=== PATIENT | female | born 1985 | race Caucasian/White ===

== ENCOUNTER 2017-07-31 17:51 | Emergency (ER) | payer MEDICAID, OTHER ==
[~2017-07-31] VITALS: Ht 170.2 cm; Wt 60.0 kg
[~2017-07-31 17:51] MED LIST: ALUM5LIQ PO; BENA25TA8 PO; CLON.1 PO; CYCL1PAK PO; HYDR50 PO; IBUP400 PO; IBUP800 PO; LAMO150 PO; LEVE500 PO; LOPE2TAB3 PO; LORA-392 PO; LORA0.5T PO; MAGN30S PO; MAPA325T6 PO; NICO2LOZ SL; PEPT262S PO; PROZ40CA PO; THIA100T PO; [UNRECOGNIZED DRUG - CODE] MT; [UNRECOGNIZED DRUG - CODE] PR
[2017-07-31 18:30] VITALS: BP 126/61; PULSE 89; RESP 16; TEMP 98.7; O2SAT 100
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
[2017-07-31] MEDS ORDERED: diphenhydrAMINE HCL 50 MG CAP PO ONE (20:15)
[2017-07-31] MEDS ORDERED: diphenhydrAMINE HCL 50 MG/ML VIAL IM ONE (20:30)
[2017-07-31] MEDS ORDERED: ZIPRASIDONE MESYLATE 20 MG VIAL IM ONE (20:30)
[2017-07-31 22:35] VITALS: BP 94/51; PULSE 73; RESP 18; TEMP 98.8; O2SAT 100
[2017-08-01 06:25] VITALS: BP 105/57; PULSE 63; RESP 18; TEMP 99.2; O2SAT 100
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
[2017-08-01] MEDS ORDERED: NICOTINE 21 MG/24 HR PATCH T-DERMAL ONE (14:30)
[2017-08-01] MEDS ORDERED: levETIRAcetam 500 MG TAB PO ONE (15:45)
[2017-08-01 18:35] VITALS: BP 130/70; PULSE 90; RESP 18; O2SAT 100
[2017-08-01] MEDS ORDERED: ZIPRASIDONE MESYLATE 20 MG VIAL IM ONE (19:00)
[2017-08-01] MEDS ORDERED: diphenhydrAMINE HCL 50 MG/ML VIAL IM ONE (19:00)
[2017-08-01 22:21] VITALS: RESP 16
[2017-08-02 06:11] VITALS: BP 98/54; PULSE 77; RESP 17; TEMP 98.3; O2SAT 99
[2017-08-02] MEDS ORDERED: NICOTINE 21 MG/24 HR PATCH T-DERMAL ONE (11:00)
[2017-08-02] MEDS ORDERED: levETIRAcetam 500 MG TAB PO ONE (14:00)
[2017-08-02] MEDS ORDERED: PREGABALIN 100 MG CAP PO ONE (14:00)
[2017-08-02] MEDS ORDERED: REMOVE OLD NICOTINE PATCH T-DERMAL ONE (14:30)
[2017-08-02 18:07] VITALS: BP 103/60; PULSE 76; RESP 18; O2SAT 96
[2017-08-02] MEDS ORDERED: ALPRAZolam 0.5 MG TAB PO ONE (22:00)
--- NOTE | 2017-08-03 10:34 | PD ---
Physical Exam Time Seen by Provider: 10:[address] Beck has evaluated the patient, lifted the Ramirez act and cleared the patient for discharge. The patient will be transferred to [facility] for continued care and evaluation. Data Data Last Documented VS Vital Signs Date Time Temp Pulse Resp B/P (MAP) Pulse Ox O2 Delivery O2 Flow Rate FiO2 08/02/17 18:07 76 18 103/60 (74) 96 Room Air 08/02/17 06:11 98.3 Orders Orders Psych Screen (07/31/17 18:54) Diet Regular Basic (07/31/17 Dinner) Diphenhydramine (Benadryl) (07/31/17 20:15) Ziprasidone Inj (Geodon Inj) (07/31/17 20:30) Diphenhydramine Inj (Benadryl Inj) (07/31/17 20:30) Diet Regular Basic (08/01/17 Breakfast) Diet Regular Basic (08/01/17 Lunch) Nicotine 21 Mg Patch.24 Hr (Habitrol 21 (08/01/17 14:30) Remove Old Patch (08/02/17 14:30) Levetiracetam (Keppra) (08/01/17 15:45) Diet Regular Basic (08/01/17 Dinner) Ziprasidone Inj (Geodon Inj) (08/01/17 19:00) Diphenhydramine Inj (Benadryl Inj) (08/01/17 19:00) Diet Regular Basic (08/02/17 Breakfast) Nicotine 21 Mg Patch.24 Hr (Habitrol 21 (08/02/17 11:00) Diet Regular Basic (08/02/17 Lunch) Levetiracetam (Keppra) (08/02/17 14:00) Pregabalin (Lyrica) (08/02/17 14:00) Diet Regular Basic (08/02/17 Dinner) Alprazolam (Xanax) (08/02/17 22:00) Diet Regular Basic (08/03/17 Breakfast) [facility] Supervised Visit with JAMMIE: No Narrative Course Dr. Beck has evaluated the patient, lifted the Ramirez act and cleared the patient for discharge. The patient will be transferred to [facility] for continued care and evaluation. Patient contracts safety. Denies suicidal or homicidal ideations. Patient will be provided community resource packet to [facility] for follow-up. Has friends and family for support. Patient was medically cleared by alternate provider prior to psych screening. Patient has been evaluated by psychiatry and and is now cleared for discharge. Diagnosis Primary Impression: History of drug overdose Additional Impressions: Drug induced hallucinations Polysubstance abuse Referrals: [facility] (Out patient) [facility] Primary Care Physician Psychiatrist Bree[facility] Patient Instructions: General Instructions, Polysubstance Abuse (ED) Additional Instruction: Contract safety to your self and others Follow-up with psychiatry Follow-up with primary care provider Follow-up with [facility] Return to the emergency department immediately with worsening of symptoms Med/Other Pt SpecificInfo: No Change to Meds, No Meds Exist/No RX given Disposition: 65 DISC TO PSYCH CARE FACILITY Condition: Stable Paula Beth E [employer] Aug 03, 2017 10:34
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
== END 2017-08-03 11:20 | disposition short-term general hospital (02) ==
LOC: NEPJ 17:51
DX: F19.151 Other psychoactive substance abuse with psychoactive substance-induced psychotic disorder with hallucinations (principal); F90.9 Attention-deficit hyperactivity disorder, unspecified type; F17.210 Nicotine dependence, cigarettes, uncomplicated; F31.9 Bipolar disorder, unspecified; M79.7 Fibromyalgia
CPT/HCPCS: 96372; 99285; J1200; J3486

== ENCOUNTER 2017-08-13 17:03 | Emergency (ER) | payer OTHER ==
[2017-08-13 17:14] VITALS: BP 141/88; PULSE 112; RESP 20; TEMP 99.5; O2SAT 100
[2017-08-13] MEDS ORDERED: CARI1CAP PO (17:36)
[2017-08-13] MEDS ORDERED: GABA100C4 PO (17:36)
[2017-08-13] MEDS ORDERED: KEPP750T PO (17:36)
[2017-08-13] MEDS ORDERED: VIST25CA PO (17:36)
[2017-08-13] MEDS ORDERED: LORA-392 PO (17:36)
[2017-08-13] MEDS ORDERED: TRAZ50TA12 PO (17:36)
[2017-08-13 17:37] VITALS: PULSE 95
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
[2017-08-13 18:41] LABS: AUTOMATED NEUTROPHIL # 4.5 TH/MM3 (1.8-7.7); BASOPHIL % 0.4 % (0.0-2.0); EOSINOPHIL # 0.1 TH/MM3 (0-0.4); EOSINOPHIL % 0.9 % (0.0-4.0); HEMATOCRIT 35.2 % (35.0-46.0); HEMOGLOBIN 12.3 GM/DL (11.6-15.3); LYMPH % 30.4 % (9.0-44.0); LYMPHOCYTE # 2.2 TH/MM3 (1.0-4.8); MEAN CORPUSCULAR HEMOGLOBIN 30.1 PG (27.0-34.0); MEAN CORPUSCULAR HGB CONC 35.1 % (32.0-36.0); MEAN PLATELET VOLUME 8.7 FL (7.0-11.0); MONO % 7.6 % (0.0-8.0); MONOCYTE # 0.6 TH/MM3 (0-0.9); NEUT % 60.7 % (16.0-70.0); PLATELET COUNT 194 TH/MM3 (150-450); RED BLOOD COUNT 4.09 MIL/MM3 (4.00-5.30); RED CELL DISTRIBUTION WIDTH 13.2 % (11.6-17.2); WHITE BLOOD COUNT 7.4 TH/MM3 (4.0-11.0)
[2017-08-13] MEDS ORDERED: TRAZ100T10 PO (18:42)
[2017-08-13] MEDS ORDERED: ZIPR1CAP12 PO (18:42)
[2017-08-13] MEDS ORDERED: NICO14DI T-DERMAL (18:42)
[2017-08-13] MEDS ORDERED: BENZ0.5T PO (18:42)
[2017-08-13] MEDS ORDERED: LYRI200C PO (18:42)
[2017-08-13 18:53] LABS: ALBUMIN 3.7 GM/DL (3.4-5.0); ALT (GPT) 52 U/L (10-53); AST (GOT) 24 U/L (15-37); BICARBONATE 27.5 MEQ/L (21.0-32.0); BLOOD UREA NITROGEN 12 MG/DL (7-18); CALCIUM 8.3 MG/DL (8.5-10.1); CHLORIDE 106 MEQ/L (98-107); CREATININE 0.79 MG/DL (0.50-1.00); GLOMERULAR FILTRATION RATE 85 ML/MIN (>89); GLUCOSE,RANDOM 85 MG/DL (74-106); SODIUM (NA) 141 MEQ/L (136-145)
[2017-08-13 19:03] LABS: ALKALINE PHOSPHATASE 57 U/L (45-117); TOTAL BILIRUBIN ADULT 0.3 MG/DL (0.2-1.0); TOTAL PROTEIN 7.1 GM/DL (6.4-8.2)
[2017-08-13 20:30] LABS: AMORPHOUS SEDIMENT, URINE RARE; BACTERIA, URINE OCC /hpf; BILIRUBIN, URINE NEG (NEG); BLOOD, URINE TRACE (NEG); GLUCOSE,URINE NEG (NEG); KETONE, URINE NEG (NEG); MUCUS URINE FEW /lpf (OCC); NITRITE,URINE NEG (NEG); PH, URINE 6.5 (5.0-8.5); SQUAMOUS EPITHELIAL CELL URINE 50 /hpf (0-5); URINE COLOR YELLOW (YELLW/STRAW); URINE LEUKOCYTE ESTERASE LARGE (NEG)
[2017-08-13 22:02] VITALS: BP 125/69; PULSE 76; RESP 18; O2SAT 100
[2017-08-13] MEDS ORDERED: SULFAMETHOXAZOLE-TRIMETHOPRIM DS 800-160 MG TAB PO ONE (22:15)
[2017-08-13] MEDS ORDERED: BACT800T5 PO (22:16)
--- NOTE | 2017-08-13 22:19 | PD ---
Data Data Last Documented VS Vital Signs Date Time Temp Pulse Resp B/P (MAP) Pulse Ox O2 Delivery O2 Flow Rate FiO2 08/13/17 22:02 76 18 125/69 (87) 100 Room Air 08/13/17 17:14 99.5 Orders Orders Complete Blood Count With Diff (08/13/17 17:59) Comprehensive Metabolic Panel (08/13/17 17:59) Thyroid Stimulating Hormone (08/13/17 17:59) Urinalysis - C+S If Indicated (08/13/17 17:59) Ed Urine Pregnancytest Poc (08/13/17 17:59) Psych Screen (08/13/17 17:59) Drug Screen, Random Urine (08/13/17 17:59) Alcohol (Ethanol) (08/13/17 17:59) Urine Culture (08/13/17 19:13) Sulfamet-Trimeth Ds 800-160 Mg (Bactrim (08/13/17 22:15) Labs Laboratory Tests Test 08/13/17 18:15 08/13/17 19:13 White Blood Count 7.4 TH/MM3 Red Blood Count 4.09 MIL/MM3 Hemoglobin 12.3 GM/DL Hematocrit 35.2 % Mean Corpuscular Volume 86.0 FL Mean Corpuscular Hemoglobin 30.1 PG Mean Corpuscular Hemoglobin Concent 35.1 % Red Cell Distribution Width 13.2 % Platelet Count 194 TH/MM3 Mean Platelet Volume 8.7 FL Neutrophils (%) (Auto) 60.7 % Lymphocytes (%) (Auto) 30.4 % Monocytes (%) (Auto) 7.6 % Eosinophils (%) (Auto) 0.9 % Basophils (%) (Auto) 0.4 % Neutrophils # (Auto) 4.5 TH/MM3 Lymphocytes # (Auto) 2.2 TH/MM3 Monocytes # (Auto) 0.6 TH/MM3 Eosinophils # (Auto) 0.1 TH/MM3 Basophils # (Auto) 0.0 TH/MM3 CBC Comment DIFF FINAL Differential Comment Blood Urea Nitrogen 12 MG/DL Creatinine 0.79 MG/DL Random Glucose 85 MG/DL Total Protein 7.1 GM/DL Albumin 3.7 GM/DL Calcium Level 8.3 MG/DL Alkaline Phosphatase 57 U/L Aspartate Amino Transf (AST/SGOT) 24 U/L Alanine Aminotransferase (ALT/SGPT) 52 U/L Total Bilirubin 0.3 MG/DL Sodium Level 141 MEQ/L Potassium Level 3.9 MEQ/L Chloride Level 106 MEQ/L Carbon Dioxide Level 27.5 MEQ/L Anion Gap 8 MEQ/L Estimat Glomerular Filtration Rate 85 ML/MIN Thyroid Stimulating Hormone 3rd Gen 4.140 uIU/ML Ethyl Alcohol Level LESS THAN 3 MG/DL Urine Color YELLOW Urine Turbidity HAZY Urine pH 6.5 Urine Specific [place] 1.024 Urine Protein 30 mg/dL Urine Glucose (UA) NEG mg/dL Urine Ketones NEG mg/dL Urine Occult Blood TRACE Urine Nitrite NEG Urine Bilirubin NEG Urine Urobilinogen LESS THAN 2.0 MG/DL Urine Leukocyte Esterase LARGE Urine RBC 13 /hpf Urine WBC 33 /hpf Urine Squamous Epithelial Cells 50 /hpf Urine Amorphous Sediment RARE Urine Bacteria OCC /hpf Urine Mucus FEW /lpf Microscopic Urinalysis Comment CULTURE INDICATED Urine Opiates Screen NEG Urine Barbiturates Screen NEG Urine Amphetamines Screen POS Urine Benzodiazepines Screen POS Urine Cocaine Screen NEG Urine Cannabinoids Screen POS MDM Supervised Visit with JAMMIE: No Narrative Course Patient is checked out to me at 7 PM. Patient has an IV drug user and is getting medical clearance for psychiatric evaluation. She did inject her left hand and there is a bit of redness and discomfort around the injection site. There is no fluctuance or drainage. Nothing remotely amenable to incision and drainage. At this point her pulse is 76 and her blood pressure is normal. She does not look septic nor toxic. She has no chest symptoms and no obvious murmur. I do not have any clinical suspicion of endocarditis. Lab studies are normal other than minor elevation of TSH not clinically requiring treatment Tox screen positive for multiple things Urinalysis shows 33 white cells and will be cultured I gave her dose of Bactrim DS and will prescribe her 10 days worth. This should help with both minor left hand cellulitis and potential UTI She is awaiting psych eval but I do not feel requires emergent hospitalization for minor infections at this point. Diagnosis Primary Impression: Medical clearance for psychiatric admission Additional Impressions: Polysubstance abuse Cellulitis of left hand excluding fingers and thumb Pyuria Scripts Sulfamethoxazole-Trimethoprim (Bactrim DS) 800-160 Mg Tab 1 TAB PO BID for Infection, #20 TAB 0 Refills Prov: Alfie Bains MD 08/13/17 Condition: Stable Alfie Bains MD August 13, 2017 22:19
[2017-08-14 05:44] VITALS: BP 107/62; PULSE 87; RESP 18; O2SAT 97
--- NOTE | 2017-08-14 08:34 | PD ---
Data Data Last Documented VS Vital Signs Date Time Temp Pulse Resp B/P (MAP) Pulse Ox O2 Delivery O2 Flow Rate FiO2 08/14/17 05:44 87 18 107/62 (77) 97 Room Air 08/13/17 17:14 99.5 Orders Orders Complete Blood Count With Diff (08/13/17 17:59) Comprehensive Metabolic Panel (08/13/17 17:59) Thyroid Stimulating Hormone (08/13/17 17:59) Urinalysis - C+S If Indicated (08/13/17 17:59) Ed Urine Pregnancytest Poc (08/13/17 17:59) Psych Screen (08/13/17 17:59) Drug Screen, Random Urine (08/13/17 17:59) Alcohol (Ethanol) (08/13/17 17:59) Urine Culture (08/13/17 19:13) Sulfamet-Trimeth Ds 800-160 Mg (Bactrim (08/13/17 22:15) Hydroxyzine Pamoate (Vistaril) (08/14/17 01:30) Diet Regular Basic (08/14/17 Breakfast) Labs Laboratory Tests Test 08/13/17 18:15 08/13/17 19:13 White Blood Count 7.4 TH/MM3 Red Blood Count 4.09 MIL/MM3 Hemoglobin 12.3 GM/DL Hematocrit 35.2 % Mean Corpuscular Volume 86.0 FL Mean Corpuscular Hemoglobin 30.1 PG Mean Corpuscular Hemoglobin Concent 35.1 % Red Cell Distribution Width 13.2 % Platelet Count 194 TH/MM3 Mean Platelet Volume 8.7 FL Neutrophils (%) (Auto) 60.7 % Lymphocytes (%) (Auto) 30.4 % Monocytes (%) (Auto) 7.6 % Eosinophils (%) (Auto) 0.9 % Basophils (%) (Auto) 0.4 % Neutrophils # (Auto) 4.5 TH/MM3 Lymphocytes # (Auto) 2.2 TH/MM3 Monocytes # (Auto) 0.6 TH/MM3 Eosinophils # (Auto) 0.1 TH/MM3 Basophils # (Auto) 0.0 TH/MM3 CBC Comment DIFF FINAL Differential Comment Blood Urea Nitrogen 12 MG/DL Creatinine 0.79 MG/DL Random Glucose 85 MG/DL Total Protein 7.1 GM/DL Albumin 3.7 GM/DL Calcium Level 8.3 MG/DL Alkaline Phosphatase 57 U/L Aspartate Amino Transf (AST/SGOT) 24 U/L Alanine Aminotransferase (ALT/SGPT) 52 U/L Total Bilirubin 0.3 MG/DL Sodium Level 141 MEQ/L Potassium Level 3.9 MEQ/L Chloride Level 106 MEQ/L Carbon Dioxide Level 27.5 MEQ/L Anion Gap 8 MEQ/L Estimat Glomerular Filtration Rate 85 ML/MIN Thyroid Stimulating Hormone 3rd Gen 4.140 uIU/ML Ethyl Alcohol Level LESS THAN 3 MG/DL Urine Color YELLOW Urine Turbidity HAZY Urine pH 6.5 Urine Specific [place] 1.024 Urine Protein 30 mg/dL Urine Glucose (UA) NEG mg/dL Urine Ketones NEG mg/dL Urine Occult Blood TRACE Urine Nitrite NEG Urine Bilirubin NEG Urine Urobilinogen LESS THAN 2.0 MG/DL Urine Leukocyte Esterase LARGE Urine RBC 13 /hpf Urine WBC 33 /hpf Urine Squamous Epithelial Cells 50 /hpf Urine Amorphous Sediment RARE Urine Bacteria OCC /hpf Urine Mucus FEW /lpf Microscopic Urinalysis Comment CULTURE INDICATED Urine Opiates Screen NEG Urine Barbiturates Screen NEG Urine Amphetamines Screen POS Urine Benzodiazepines Screen POS Urine Cocaine Screen NEG Urine Cannabinoids Screen POS MDM Medical Record Reviewed: Yes Supervised Visit with JAMMIE: No Narrative Course Please see previous providers notes. This patient has been examined by Dr. Loya the psychiatrist who has cleared her from a psychiatry standpoint to go home. She has no medical issues that would warrant further hospitalization. Previous provider wrote her Bactrim for UTI. Stable for discharge. Diagnosis Primary Impression: Medical clearance for psychiatric admission Additional Impressions: Pyuria Polysubstance abuse Cellulitis of left hand excluding fingers and thumb Med/Other Pt SpecificInfo: Prescription(s) given Scripts Sulfamethoxazole-Trimethoprim (Bactrim DS) 800-160 Mg Tab 1 TAB PO BID for Infection, #20 TAB 0 Refills Prov: Alfie Bains MD 08/13/17 Disposition: 01 DISCHARGE HOME Condition: Stable Leroy Keita August 14, 2017 08:34
--- NOTE | 2017-08-14 11:54 | PD.PSY.CON ---
Provisional Diagnosis Admission Date [place]. Polysubstance dependence, including cocaine, cannabis and amphetamines History of Present Illness Service Psychiatry Consult Requested By ER Reason for Consult Visual hallucination Primary Care Physician Unknown HPI The patient is a 31 year-old woman, single, domiciled with her mother , unemployed, supported by [facility] with two children ( 3 year old son and 15 year daughter), she has a psychiatric history of bipolar disorder, borderline personality disorder, ADHD, multiple psychiatric hospitalizations, numerous suicidal attempts, polysubstance dependence including amphetamines, cocaine, benzodiazepines, cannabis, medical history of TBI, seizures, fibromyalgia, hepatitis C, who is brought in by her mom voluntarily for psychiatric evaluation. Patient was recently seen here under psychiatric evaluation on 01 August, and was transferred to [facility] under an [facility], and was just released yesterday afternoon. Patient denies use of drugs however she has obvious injection pratt to the left first webspace and swelling and erythema to the dorsal left hand. Patient is lethargic, but able to answer questions appropriately. She states she is having both auditory and visual hallucinations. On my psychiatric evaluation today the patient denies depressive symptoms. He says that she wants to go home. He denies suicidal enemas ideation, she denies visual and auditory hallucinations at the moment. The patient reports that she was having hallucinations yesterday because she is drugs. The patient reports that detox/rehab in [facility] did not work for her. Past Family Social History Coded Allergies: No Known Allergies (Verified Allergy, Unknown, 07/31/17) Per LORENZA Burrows, [facility]. Active Scripts Sulfamethoxazole-Trimethoprim (Bactrim DS) 800-160 Mg Tab, 1 TAB PO BID for Infection, #20 TAB 0 Refills Prov:Alfie Bains MD 08/13/17 Reported Medications Nicotine Patch (Nicotine Patch) 14 Mg/24 Hr Patch, 14 MG T-DERMAL DAILY for Smoking Cessation, #30 PATCH 0 Refills 08/13/17 Pregabalin (Lyrica) 200 Mg Cap, 200 MG PO BID, #60 CAP 0 Refills 08/13/17 Trazodone (Trazodone) 100 Mg Tablet, 100 MG PO HS for Control Depression, #30 TAB 0 Refills 08/13/17 Benztropine (Benztropine) 0.5 Mg Tab, 1 MG PO BID, #60 TAB 0 Refills 08/13/17 Ziprasidone (Ziprasidone) 80 Mg Cap, 80 MG PO BIDPC, #60 CAP 0 Refills 08/13/17 Hydroxyzine Pamoate (Vistaril) 25 Mg Cap, 25 MG PO HS, CAP 0 Refills 08/13/17 Gabapentin (Gabapentin) 100 Mg Cap, 100 MG PO BID, #60 CAP 0 Refills 08/13/17 Cariprazine (Vraylar) 1.5 Mg Cap, 1.5 MG PO DAILY, #30 CAP 0 Refills 08/13/17 Levetiracetam (Keppra) 750 Mg Tab, 750 MG PO BID for Control Seizures, #60 TAB 0 Refills 08/13/17 Lorazepam (Ativan) 0.5 Mg Tab, 0.5 MG PO DAILY Y for ANXIETY AND/OR AGITATION, TAB 0 Refills 08/13/17 Discontinued Reported Medications Trazodone (Trazodone) 50 Mg Tab, 50 MG PO HS for Control Depression, #30 TAB 0 Refills 08/13/17 Physical Exam Vital Signs Vital Signs Date Time Temp Pulse Resp B/P (MAP) Pulse Ox O2 Delivery O2 Flow Rate FiO2 08/14/17 08:45 08/14/17 05:44 87 18 97 Room Air 08/13/17 17:14 99.5 Lab Results Test 08/13/17 18:15 08/13/17 19:13 White Blood Count 7.4 TH/MM3 Red Blood Count 4.09 MIL/MM3 Hemoglobin 12.3 GM/DL Hematocrit 35.2 % Mean Corpuscular Volume 86.0 FL Mean Corpuscular Hemoglobin 30.1 PG Mean Corpuscular Hemoglobin Concent 35.1 % Red Cell Distribution Width 13.2 % Platelet Count 194 TH/MM3 Mean Platelet Volume 8.7 FL Neutrophils (%) (Auto) 60.7 % Lymphocytes (%) (Auto) 30.4 % Monocytes (%) (Auto) 7.6 % Eosinophils (%) (Auto) 0.9 % Basophils (%) (Auto) 0.4 % Neutrophils # (Auto) 4.5 TH/MM3 Lymphocytes # (Auto) 2.2 TH/MM3 Monocytes # (Auto) 0.6 TH/MM3 Eosinophils # (Auto) 0.1 TH/MM3 Basophils # (Auto) 0.0 TH/MM3 CBC Comment DIFF FINAL Differential Comment Blood Urea Nitrogen 12 MG/DL Creatinine 0.79 MG/DL Random Glucose 85 MG/DL Total Protein 7.1 GM/DL Albumin 3.7 GM/DL Calcium Level 8.3 MG/DL Alkaline Phosphatase 57 U/L Aspartate Amino Transf (AST/SGOT) 24 U/L Alanine Aminotransferase (ALT/SGPT) 52 U/L Total Bilirubin 0.3 MG/DL Sodium Level 141 MEQ/L Potassium Level 3.9 MEQ/L Chloride Level 106 MEQ/L Carbon Dioxide Level 27.5 MEQ/L Anion Gap 8 MEQ/L Estimat Glomerular Filtration Rate 85 ML/MIN Thyroid Stimulating Hormone 3rd Gen 4.140 uIU/ML Ethyl Alcohol Level LESS THAN 3 MG/DL Urine Color YELLOW Urine Turbidity HAZY Urine pH 6.5 Urine Specific [place] 1.024 Urine Protein 30 mg/dL Urine Glucose (UA) NEG mg/dL Urine Ketones NEG mg/dL Urine Occult Blood TRACE Urine Nitrite NEG Urine Bilirubin NEG Urine Urobilinogen LESS THAN 2.0 MG/DL Urine Leukocyte Esterase LARGE Urine RBC 13 /hpf Urine WBC 33 /hpf Urine Squamous Epithelial Cells 50 /hpf Urine Amorphous Sediment RARE Urine Bacteria OCC /hpf Urine Mucus FEW /lpf Microscopic Urinalysis Comment CULTURE INDICATED Urine Opiates Screen NEG Urine Barbiturates Screen NEG Urine Amphetamines Screen POS Urine Benzodiazepines Screen POS Urine Cocaine Screen NEG Urine Cannabinoids Screen POS Date/Time Source Procedure Growth Status 08/13/17 19:13 Urine Random Urine Urine Culture Pending Received Mental Status Examination Appearance: Appropriate Consciousness: Alert Orientation: x4 Motor Activity: Normal gait Speech: Unremarkable Language: Adequate Fund of Knowledge: Adequate Attention and Concentration: Adequate Memory: Unremarkable Mood: Appropriate Affect: Appropriate Thought Process & Associations: Intact Thought Content: Appropriate Hallucination Type: None Delusion Type: None Suicidal Ideation: No Suicidal Plan: No Suicidal Intention: No Homicidal Ideation: No Homicidal Plan: No Homicidal Intention: No Insight: Adequate Judgment: Adequate Assessment & Plan Problem List: (1) Polysubstance abuse ICD Codes: F19.10 - Other psychoactive substance abuse, uncomplicated Status: Acute Assessment & Plan: Psychiatric evaluation today the patient seems to be clinically sober now. She denies depression, denies anxiety, denies samantha and psychosis. She denies suicidal enemas ideation, she denies visual and auditory hallucinations. Apparently her recent visual hallucinations were secondary to intoxication with amphetamines, cocaine and cannabis, as showed in U tox. There is a patient that was just released from [facility] after a detox. Unfortunately , she does not meet criteria for involuntary psychiatric admission at this moment. Assessment & Plan Estimated LOS: Christian Almeida MD August 14, 2017 11:54
== END 2017-08-14 08:48 | disposition home or self-care (01) ==
LOC: NEPD 17:03
DX: F15.20 Other stimulant dependence, uncomplicated (principal); N39.0 Urinary tract infection, site not specified; L03.114 Cellulitis of left upper limb; F17.200 Nicotine dependence, unspecified, uncomplicated; F31.9 Bipolar disorder, unspecified
CPT/HCPCS: 80053; 80307; 81001; 84443; 84703; 85025; 87086; 99283